=== PATIENT | male | born 1995 | race Caucasian/White ===

== ENCOUNTER 2018-07-07 09:07 | Emergency (ER) | payer SELFPAY ==
[~2018-07-07] VITALS: Ht 193 cm; Wt 103.9 kg
[~2018-07-07 09:07] MED LIST: MOTRIN600 MG PO; NAPROSYN500 MG PO; NOHOMEMEDS; VALIUM2 MG PO
[2018-07-07] MEDS ORDERED: MOTRIN600 MG PO (10:12)
[2018-07-07 10:41] VITALS: BP 131/88
== END 2018-07-07 10:42 | disposition home or self-care (01) ==
LOC: EME 09:07
PROVIDERS: Emergency Medicine
DX: F41.9 Anxiety disorder, unspecified (principal); S16.1XXA Strain of muscle, fascia and tendon at neck level, initial encounter; V48.6XXA Car passenger injured in noncollision transport accident in traffic accident, initial encounter; Z63.0 Problems in relationship with spouse or partner; Z88.2 Allergy status to sulfonamides
CPT/HCPCS: 72040; 82948; 99281; 99284